=== PATIENT | male | born 1980 | race Caucasian/White ===

== ENCOUNTER 2021-09-18 12:23 | Outpatient (CLI) | payer BC, SELFPAY ==
--- NOTE | 2021-09-18 12:28 | RAD_ITS ---
INDICATION: PAIN EXAMINATION/TECHNIQUE: X-RAY - RIGHT XR Elbow Min 3 Views COMPARISON: None. FINDINGS: No acute fracture or dislocation. Joint spaces are intact. Soft tissues are unremarkable. No radiopaque foreign bodies. No significant joint effusion. RAD/Elbow min 3 Views IMPRESSION: No acute findings. Electronically Signed: Kuldeep Barrientos, at 12:57 EDT ,
== END 2021-09-18 23:59 | disposition home or self-care (01) ==
PROVIDERS: PCP Family Medicine; Referring Provider Family Medicine; Visit Provider Family Medicine
DX: M25.521 Pain in right elbow (principal)
CPT/HCPCS: 73080